=== PATIENT | male | born 1990 | race Caucasian/White ===

== ENCOUNTER 2017-01-08 03:57 | Emergency (ER) | payer OTHER ==
[~2017-01-08] VITALS: Ht 185.4 cm; Wt 59.1 kg
[2017-01-08 04:06] VITALS: Ht 185.4 cm; Wt 59.1 kg
--- NOTE | 2017-01-08 04:20 | ERD ---
ER Documentation Chief Complaint Date/Time DATE: 01/08/17 TIME: 04:19 Chief Complaint BIBA RA 0, ETOH intoxication HPI 26-year-old male brought in by rescue for EtOH intoxication. No evidence of trauma. Patient admits to drinking. He was found down by paramedics. Patient is very poor historian ROS All systems reviewed and are negative except as per history of present illness. Allergies Allergies: Coded Allergies: No Known Allergy (Unverified , 01/08/17) PMhx/Soc History of Surgery: No Anesthesia Reaction: No Hx Neurological Disorder: No Hx Respiratory Disorders: No Hx Cardiac Disorders: No Hx Psychiatric Problems: No Hx Miscellaneous Medical Probl: No Hx Alcohol Use: Yes Hx Substance Use: No Hx Tobacco Use: No Smoking Status: Never smoker Physical Exam Vitals Vital Signs Date Time Temp Pulse Resp B/P Pulse Ox O2 Delivery O2 Flow Rate FiO2 01/08/17 04:06 98.1 97 18 114/69 95 Physical Exam Const: [] Head: Atraumatic Eyes: Normal Conjunctiva ENT: Normal External Ears, Nose and Mouth. Neck: Full range of motion..~ No meningismus. Resp: Clear to auscultation bilaterally Cardio: Regular rate and rhythm, no murmurs Abd: Soft, non tender, non distended. Normal bowel sounds Skin: No petechiae or rashes Back: No midline or flank tenderness Ext: No cyanosis, or edema Neur: Awake and alert Psych: Normal Mood and Affect Procedures/MDM Medical decision-makin-year-old male with acute alcohol intoxication. At this point clinically stable for outpatient management. Patient denies of breath. Patient is going to speech good decision-making capacity and ability to negotiate community upon discharge. Departure Diagnosis: Primary Impression: Alcoholic intoxication Complication of substance-induced condition: with unspecified complication Qualified Code: F10.129 - Alcoholic intoxication, with unspecified complication Condition: Stable ARACELIS MCHUGH Jan 08, 2017 04:20
[2017-01-08] MEDS ORDERED: morphine 4 MG/ML VIAL IV STA (05:04)
[2017-01-08] MEDS ORDERED: SOD CHLORIDE 0.9% 1,000 ML IV STA (05:04)
[2017-01-08] MEDS ORDERED: ONDANSETRON 4 MG INJ IV STA (05:04)
[2017-01-08] MEDS ORDERED: ALBU8.5H3 INH (05:25)
== END 2017-01-08 05:07 | disposition home or self-care (01) ==
LOC: EDBD 03:57 → E/R 03:57
DX: F10.129 Alcohol abuse with intoxication, unspecified (principal)
CPT/HCPCS: 99283; J7030